=== PATIENT | male | born 1945 | race Caucasian/White ===

== ENCOUNTER 2018-01-30 09:30 | Emergency (ER) | payer MEDICARE, BC ==
[~2018-01-30] VITALS: Ht 180.3 cm; Wt 163.3 kg
[~2018-01-30 09:30] MED LIST: ALLERCLEAR10 MG PO; ASPIR-LOW81 MG PO; BACTRIM DS TAB1 EACH PO; DIOVAN320 MG PO; FLUNISOLIDE25 M1; GLYBURIDE5 MG PO; HYDRALAZINE HCL10 MG PO; LANTUS100 UNITS/ SQ; METFORMIN HCL850 MG PO; PIOGLITAZONE30 MG PO; SIMVASTATIN10 MG PO; TERAZOSIN HCL10 MG PO; TOPROL XL50 MG PO; TRIAMTERENE-HC1 EAC2 PO; ULTRAM50 MG PO
[2018-01-30 10:33] VITALS: BP 155/66
== END 2018-01-30 10:41 | disposition home or self-care (01) ==
LOC: FSED 09:30
DX: L02.31 Cutaneous abscess of buttock (principal); I10 Essential (primary) hypertension; E11.9 Type 2 diabetes mellitus without complications; Z79.82 Long term (current) use of aspirin; Z79.4 Long term (current) use of insulin
CPT/HCPCS: 19000; 87071; 87205; 99283

== ENCOUNTER 2018-02-01 08:57 | Emergency (ER) | payer MEDICARE, BC ==
[~2018-02-01] VITALS: Ht 180.3 cm; Wt 122.5 kg
--- OUTSIDE RECORDS SUMMARY | 2018-02-01 09:00 | XMS REPORT | Continuity of Care Document ---
Author Author [facility] Organization [facility] Address [address] [place] [address] Phone Unavailable Care Team Providers Care Car Dryer Name Role Phone NONSTAFF PCP Unavailable Insurance Providers Guarantor Jose Sales Address [address] [place] [address] Payer [facility] Policy Number [id number] Subscriber's Name Jose Sales Relationship 18 Self / Same As Patient Group Number [id number] Effective Date 13 Payer Medicare A & B Policy Number [id number] Subscriber's Name Jose Sales Relationship 18 Self / Same As Patient Group Name RETIRED Effective Date 11 Advance Directives Directive Response Recorded Date/Time Does the patient have an advance directive? Yes 10/17/12 8:30pm If yes, is advance directive on file with [facility]? No 10/17/12 8:30pm If not on file with [facility] will patient provide a copy? No 10/17/12 8:30pm Problems No problem information available. Medications Current Home Medications Medication Dose Units Route Directions Days Qty Instructions Start Date Aspirin (Aspir-Low) 81 Mg Tablet. 81 Mg Oral Daily Flunisolide 25 Ml [place] Glyburide 5 Mg Tablet 10 Mg Oral Twice A Day Hydralazine Hcl 10 Mg Tablet 20 Mg Oral Three Times A Day Insulin Glargine (Lantus) 100 Units/Ml Ml 20 Units Sub-Q Bedtime Loratadine (Allerclear) 10 Mg Tablet 10 Mg Oral Daily Metformin Hcl 850 Mg Tablet 850 Mg Oral Three Times A Day Metoprolol Succinate (Toprol Xl) 50 Mg Tab.er.24h 25 Mg Oral Twice A Day Pioglitazone Hcl (Pioglitazone) 30 Mg Tablet 30 Mg Oral Daily Simvastatin 10 Mg Tablet 10 Mg Oral Bedtime Sulfamethoxazole/Trimethoprim (Bactrim Ds Tablet) 1 Each Tablet 1 Tab Oral Twice A Day Terazosin Hcl 10 Mg Capsule 10 Mg Oral Daily Tramadol Hcl (Ultram) 50 Mg Tablet 50 Mg Oral Every 4 Hours as needed Triamterene/Hydrochlorothiazid (Triamterene-Hctz 37.5-25 Mg Cp) 1 Each Capsule 37.5 Mg Oral Daily Valsartan (Diovan) 320 Mg Tablet 320 Mg Oral Daily Social History Social History Problem Response Recorded Date/Time Onset Date Status Hx Psychiatric Problems No 10/17/2012 8:30pm Not Applicable Not Applicable Hx Alcohol Use No 10/17/2012 8:30pm Not Applicable Not Applicable Hx Substance Use Treatment No 10/17/2012 8:30pm Not Applicable Not Applicable Hx Physical Abuse No 10/17/2012 8:30pm Not Applicable Not Applicable Smoking Status Start Date Stop Date Former smoker Hospital Discharge Instructions No hospital discharge instruction information available. Plan of Care Discharge Date 01/30/18 10:41am Disposition HOME, SELF-CARE Condition at Discharge Stable Instructions/Education Provided Cellulitis Wound Care (General) Forms Provided Work/School Excuse Prescriptions See Medication Section Additional Instructions/Education KEEP WOUND CLEAN AND DRY DO NOT REMOVE PACKING RETURN IN 2 DAYS FOR WOUND RECHECK TAKE MEDICATIONS DIRECTED RETURN IF SYMPTOMS WORSEN Functional Status No functional status information available. Allergies, Adverse Reactions, Alerts Allergen Type Severity Reaction Status Last Updated Lisinopril Allergy Active 10/17/12 Immunizations No immunization information available. Vital Signs Acute Vital Signs Vital Response Date/Time Temperature (Fahrenheit) 97.4 degrees F (97.6 - 99.5) 01/30/2018 10:33am Pulse Pulse Rate (adult) 84 bpm (60 - 90) 01/30/2018 10:33am Respiratory Rate 18 bpm (12 - 24) 01/30/2018 10:33am Blood Pressure 155/66 mm Hg 01/30/2018 10:33am Height 5 ft 11 in 01/30/2018 9:43am Weight 360 lb 01/30/2018 9:43am Body Mass Index 50.2 kg/m^2 01/30/2018 9:43am Results No relevant diagnostic test, laboratory data and/or discharge summary information available. Procedures No procedure information available. Encounters Encounter Location Arrival/Admit Date Discharge/Depart Date Attending Provider Departed Emergency Room [facility] 01/30/18 9:30am 10:41am MICHAEL CARTER MD
[2018-02-01] MEDS: CLINDAMYCIN 600MG/D5W 50ML 50 ML IV ONE (10:05)
[2018-02-01 10:44] VITALS: BP 128/78
== END 2018-02-01 10:40 | disposition home or self-care (01) ==
LOC: FSED 08:57
DX: L02.31 Cutaneous abscess of buttock (principal); I10 Essential (primary) hypertension; E11.9 Type 2 diabetes mellitus without complications
CPT/HCPCS: 80048; 85025; 99284

== ENCOUNTER 2020-07-09 09:52 | Emergency (ER) | payer MEDICARE, BC ==
[~2020-07-09] VITALS: Ht 180.3 cm; Wt 122.5 kg
[2020-07-09] MEDS ORDERED: HYDRALAZINE HCL 20 MG/ML VIAL IV STA (10:05)
[2020-07-09 10:15] LABS: BASOPHILS % 0.6 % (0.0-1.0); EOSINOPHILS # (AUTO) 0.2 (0.0-0.4); HEMATOCRIT 44.4 % (38.2-49.6); HEMOGLOBIN 14.9 g/dL (14.0-18.0); LYMPHOCYTES # (AUTO) 2.1 (1.0-3.2); LYMPHOCYTES % 33.3 % (18.0-39.1); MEAN CORPUSCULAR HEMOGLOBIN 29.5 pg (28-32); MEAN CORPUSCULAR HGB CONC 33.6 g/dL (31-35); MEAN CORPUSCULAR VOLUME 87.9 fL (81-99); MONOCYTES # (AUTO) 0.4 (0.2-0.8); MONOCYTES % 6.4 % (4.4-11.3); NEUTROPHILS # (AUTO) 3.6 (2.1-6.9); NEUTROPHILS % 55.9 % (38.7-80.0); PLATELET COUNT 207 x10e3/uL (140-360); RED BLOOD COUNT 5.05 x10e6/uL (4.3-5.7); RED CELL DISTRIBUTION WIDTH 13.2 % (11.7-14.4)
[2020-07-09 10:28] LABS: INR 0.89; PROTHROMBIN TIME 12.5 seconds (11.9-14.5)
[2020-07-09 10:29] LABS: PARTIAL THROMBOPLASTIN TIME 26.4 seconds (23.8-35.5)
[2020-07-09 10:34] LABS: ALANINE AMINOTRANSFERASE 17 IU/L (0-55); ALBUMIN 4.1 g/dL (3.5-5.0); ALBUMIN/GLOBULIN RATIO 1.2 (0.8-2.0); ALKALINE PHOSPHATASE 56 IU/L (40-150); ANION GAP 13.4 mmol/L (8-16); BLOOD UREA NITROGEN 13 mg/dL (7-26); BUN/CREATININE RATIO 13 (6-25); CALCIUM 9.6 mg/dL (8.4-10.2); CARBON DIOXIDE 27 mmol/L (22-29); CHLORIDE 103 mmol/L (98-107); CREATINE KINASE 54 IU/L (30-200); CREATININE, SERUM 1.03 mg/dL (0.72-1.25); EST GLOMERULAR FILTRATION RATE > 60 ML/MIN (60-); GLUCOSE 235 mg/dL (74-118); POTASSIUM 3.4 mmol/L (3.5-5.1); SODIUM 140 mmol/L (136-145)
--- NOTE | 2020-07-09 10:35 | NUR ---
REQUESTED HYDRALAZINE IV FROM PHARMACY, PER PHARMACY, HYDRALAZINE IS ON BACK ORDER, DR. DUNN NOTIFIED
--- OUTSIDE RECORDS SUMMARY | 2020-07-09 10:38 | XMS REPORT | Continuity of Care Document ---
Author Author [facility] t Organization [facility] Address [address] [place] [address] Phone Unavailable Care Team Providers Care Legal Billing Clerk Name Role Phone NONSTAFF PCP Unavailable Payers Payer Name Policy Type Policy Number Effective Date Expiration Date Darwin bocanegra [facility] [id number] 2013 00:00:00 [facility] Medicare A & B [id number] 2011 00:00:[address] [facility] Problems This patient has no known problems. Allergies, Adverse Reactions, Alerts Allergy Name Allergy Type Status Severity Reaction(s) Onset Date Inacti ve Date Treating Clinician Comments Source Lisinopril Allergy to Substance Active 2018-02-01 00:00:00 [facility] Medications Ordered Medication Name Filled Medication Name Start Date Stop Da te Current Medication? Ordering Clinician Indication Dosage Frequency Signature (SIG) Comments Components Source Aspirin (Aspir-Low) 81 Mg Tablet. Aspirin (Aspir-Low) 81 Mg Tablet. Yes 81 Daily [facility] Flunisolide 25 Ml Ulm Flunisolide 25 Ml Ulm Yes [facility] Glyburide 5 Mg Tablet Glyburide 5 Mg Tablet Yes 10 Twice A Day [facility] Hydralazine Hcl 10 Mg Tablet Hydralazine Hcl 10 Mg Tablet Y es 20 Three Times A Day [facility] Insulin Glargine (Lantus) 100 Units/Ml Ml Insulin Glar gine (Lantus) 100 Units/Ml Ml Yes 20 Bedtime [facility] Loratadine (Allerclear) 10 Mg Tablet Loratadine (Allerclear) 10 Mg Tablet Yes 10 Daily [facility] Metformin Hcl 850 Mg Tablet Metformin Hcl 850 Mg Tablet Yes 850 Three Times A Day [facility] Metoprolol Succinate (Toprol Xl) 50 Mg Tab.er.24h Meto prolol Succinate (Toprol Xl) 50 Mg Tab.er.24h Yes 25 Twice A Day [facility] Pioglitazone Hcl (Pioglitazone) 30 Mg Tablet Pioglitaz one Hcl (Pioglitazone) 30 Mg Tablet Yes 30 Daily [facility] Simvastatin 10 Mg Tablet Simvastatin 10 Mg Tablet Yes 10 Bedtime [facility] Sulfamethoxazole/Trimethoprim (Bactrim Ds Tablet) 1 Ea ch Tablet Sulfamethoxazole/Trimethoprim (Bactrim Ds Tablet) 1 Each Tablet Yes 1 Twice A Day [facility] Terazosin Hcl 10 Mg Capsule Terazosin Hcl 10 Mg Capsule Yes 10 Daily [facility] Tramadol Hcl (Ultram) 50 Mg Tablet Tramadol Hcl (Ultram) 50 Mg Tablet Yes 50 Every 4 Hours as needed C [facility] Triamterene/Hydrochlorothiazid (Triamterene-Hctz 37.5- 25 Mg Cp) 1 Each Capsule Triamterene/Hydrochlorothiazid (Triamterene-Hctz 37.5-25 Mg Cp) 1 Each Capsule Yes 37.5 Daily [facility] Valsartan (Diovan) 320 Mg Tablet Valsartan (Diovan) 320 Mg Tablet Yes 320 Daily [facility] Procedures This patient has no known procedures. Encounters Start Date/Time End Date/Time [facility] ID Source 2018-02-01 08:57:00 2018-02-01 10:40:00 Departed Emergency Room [facility] [id number] [facility] 2018-01-30 09:30:00 2018-01-30 10:41:00 Departed Emergency Room [facility] [id number] [facility] Results This patient has no known results.
--- NOTE | 2020-07-09 10:39 | Diagnostic Imaging Report ---
Examination: CT BRAIN WO CONTRAST History:^N ^HTN HEADACHE ^[id number] ^1010 Comparison studies:None Technique: Axial images were obtained from the skull base to the vertex. Coronal and sagittal images reconstructed from the axial data. Dose modulation, iterative reconstruction, and/or weight based adjustment of the mA/kV was utilized to reduce the radiation dose to as low as reasonably achievable. Intravenous contrast: None Findings: Scalp: An 8.5 mm calcified lesion of the right frontal scalp. Bones: No fractures, blastic or lytic lesions. Brain sulci: Appropriate for age. Ventricles: Normal in size and configuration. No hydrocephalus. Extra-axial space: No abnormalities. Parenchyma: There are subtle patchy areas of hypoattenuation in the periventricular white matter, nonspecific, but could represent microvascular ischemic change. No masses, hemorrhage, or acute or chronic cortical based vascular insults.. Sellar/suprasellar region: No abnormalities. Craniocervical junction: Patent foramen magnum. No Chiari one malformation. Incidental findings: Atherosclerotic calcification of the cavernous and supraclinoid internal carotid arteries. Impression: No acute intracranial abnormality. Chronic microvascular ischemic change. Signed by: Dr. Elina Soto M.D. on 07/09/2020 10:36 AM
[2020-07-09] MEDS ORDERED: NIFEDIPINE 10 MG CAP PO STA (10:41)
--- NOTE | 2020-07-09 10:41 | Diagnostic Imaging Report ---
TECHNIQUE: Frontal view of the chest. INDICATION: ^HTN URGENCY COMPARISON: None DISCUSSION: Limited evaluation due to portable technique. Lines and hardware: None Heart and mediastinum: Cardiomediastinal silhouette is borderline enlarged, accentuated by technique. Lungs and pleura: Low lung volumes. No focal airspace consolidation. No pleural effusion. No pneumothorax. Soft tissues and bones: No acute abnormality. IMPRESSION: Low lung volumes. Negative for acute intrathoracic process. Signed by: Adama Hines MD on 07/09/2020 10:38 AM
--- NOTE | 2020-07-09 11:36 | Emergency Department Note ---
History of Present Illnes History of Present Illness Chief Complaint: Hypertension History of Present Illness This is a 74 year old male PATIENT IN FROM HOME WITH COMPLAINTS OF HIGH BLOOD PRESSURE FOR OVER A WEEK; STATES HE HAS BEEN TAKING HIS BLOOD PRESSURE MEDICATION BUT IT HAS NOT BEEN WORKING. PATIENT ALERT AND ORIENTED, RESP EVEN AND NONLABORED, APPEARS IN NO DISTRESS, DENIES PAIN, AMBULATORY WITHOUT ASSISTANCE. Historian: Patient Arrival Mode: Car Family Services Specialist Required: No Onset (how long ago): week(s) (1) Location: NO PAIN Radiation: Reports non-radiation Severity: mild Onset quality: gradual Timing of current episode: intermittent Chronicity: chronic Context: Denies recent illness Relieving factors: none Exacerbating factors: none Associated symptoms: Reports denies other symptoms, Reports headaches (OCCASIONAL HEADACHES, HAS MILD GEORGE YESTERDAY, NO PAIN CURRENTLY) Treatments prior to arrival: none Past Medical/Family History Physician Review I have reviewed the patient's past medical and family history. Any updates have been documented here. Past Medical History Recent Fever: No Clinical Suspicion of Infectio: No New/Unexplained Change in Ment: No Past Medical History: Hypertension, Diabetes, Depression Other Medical History: BPH Past Surgical History: None Other Surgery: SHOULDER SURGERY Social History Smoking Cessation: Never Smoker Counseling Performed: No Alcohol Use: None Any Illegal Drug Use: No TB Exposure/Symptoms: No Physically hurt or threatened: No Family History Family history of heart diseas: No Other Last Tetanus: UNK Any Pre-Existing Lines (PICC,: No Review of Systems Review of Systems Constitutional: Reports no symptoms EENTM: Reports no symptoms Cardiovascular: Reports no symptoms Respiratory: Reports no symptoms Gastrointestinal: Reports no symptoms Genitourinary: Reports no symptoms Musculoskeletal: Reports no symptoms Integumentary: Reports no symptoms Neurological: Reports no symptoms Psychological: Reports no symptoms Endocrine: Reports no symptoms Hematological/Lymphatic: Reports no symptoms Physical Exam Related Data Allergies: Coded Allergies: Uicalos-Zrd-Vcj Reductase Inhibitor (Verified Allergy, Severe, SWELLING, DIFFICULTY BREATHING, 07/09/20) lisinopril (Verified Allergy, Unknown, 07/09/20) Triage Vital Signs Vital Signs Date Time Temp Pulse Resp B/P (MAP) Pulse Ox O2 Delivery O2 Flow Rate FiO2 07/09/20 09:58 97.0 83 20 210/96 99 Room Air Vital signs reviewed: Yes Physical Exam CONSTITUTIONAL Constitutional: Present well-developed, Present well-nourished, Present obese HENT HENT: Present normocephalic, Present atraumatic, Present oropharynx clear/moist, Present nose normal HENT L/R: Present left ext ear normal, Present right ext ear normal EYES Eyes: Reports PERRL, Reports conjunctivae normal NECK Neck: Present ROM normal PULMONARY Pulmonary: Present effort normal, Present breath sounds normal CARDIOVASCULAR Cardiovascular: Present regular rhythm, Present heart sounds normal, Present capillary refill normal, Present normal rate GASTROINTESTINAL Abdominal: Present soft, Present nontender, Present bowel sounds normal GENITOURINARY Genitourinary: Present exam deferred SKIN Skin: Present warm, Present dry MUSCULOSKELETAL Musculoskeletal: Present ROM normal NEUROLOGICAL Neurological: Present alert, Present oriented x 3, Present no gross motor or sensory deficits PSYCHOLOGICAL Psychological: Present mood/affect normal, Present judgement normal Results Laboratory Result Diagram: 07/09/20 1004 07/09/20 1004 Laboratory Laboratory Tests Test 07/09/20 10:04 White Blood Count 6.43 x10e3/uL (4.8-10.8) Red Blood Count 5.05 x10e6/uL (4.3-5.7) Hemoglobin 14.9 g/dL (14.0-18.0) Hematocrit 44.4 % (38.2-49.6) Mean Corpuscular Volume 87.9 fL (81-99) Mean Corpuscular Hemoglobin 29.5 pg (28-32) Mean Corpuscular Hemoglobin Concent 33.6 g/dL (31-35) Red Cell Distribution Width 13.2 % (11.7-14.4) Platelet Count 207 x10e3/uL (140-360) Neutrophils (%) (Auto) 55.9 % (38.7-80.0) Lymphocytes (%) (Auto) 33.3 % (18.0-39.1) Monocytes (%) (Auto) 6.4 % (4.4-11.3) Eosinophils (%) (Auto) 3.0 % (0.0-6.0) Basophils (%) (Auto) 0.6 % (0.0-1.0) Neutrophils # (Auto) 3.6 (2.1-6.9) Lymphocytes # (Auto) 2.1 (1.0-3.2) Monocytes # (Auto) 0.4 (0.2-0.8) Eosinophils # (Auto) 0.2 (0.0-0.4) Basophils # (Auto) 0.0 (0.0-0.1) Absolute Immature Granulocyte (auto 0.05 x10e3/uL (0-0.1) Prothrombin Time 12.5 seconds (11.9-14.5) Prothromb Time International Ratio 0.89 Activated Partial Thromboplast Time 26.4 seconds (23.8-35.5) Sodium Level 140 mmol/L (136-145) Potassium Level 3.4 mmol/L (3.5-5.1) Chloride Level 103 mmol/L (98-107) Carbon Dioxide Level 27 mmol/L (22-29) Anion Gap 13.4 mmol/L (8-16) Blood Urea Nitrogen 13 mg/dL (7-26) Creatinine 1.03 mg/dL (0.72-1.25) Estimat Glomerular Filtration Rate > 60 ML/MIN (60-) BUN/Creatinine Ratio 13 (6-25) Glucose Level 235 mg/dL (74-118) Calcium Level 9.6 mg/dL (8.4-10.2) Total Bilirubin 0.5 mg/dL (0.2-1.2) Aspartate Amino Transf (AST/SGOT) 15 IU/L (5-34) Alanine Aminotransferase (ALT/SGPT) 17 IU/L (0-55) Alkaline Phosphatase 56 IU/L (40-150) Creatine Kinase 54 IU/L (30-200) Creatine Kinase MB 1.10 ng/mL (0-5.0) Troponin I 0.006 ng/mL (0-0.300) Total Protein 7.5 g/dL (6.5-8.1) Albumin 4.1 g/dL (3.5-5.0) Globulin 3.4 g/dL (2.3-3.5) Albumin/Globulin Ratio 1.2 (0.8-2.0) Lab results reviewed: Yes Imaging Imaging results reviewed: Yes Procedures 12 Lead ECG Interpretation ECG Interpretation : ECG: ECG 1 Family Services Specialist: Interpreted by ED physician Date: Jul 09, 2020 Time: 10:06 Rhythm: sinus bradycardia (WITH 1ST DEG AVB) Rate: bradycardia BPM: 57 QRS axis: normal Conduction: intraventricular conduction delay ST segments normal: Yes T wave inversion: III T waves flattening: aVF, V3, V4, V5, V6 Q waves: III Clinical Impression: abnormal ECG Assessment & Plan Medical Decision Making MDM HTN, ASYMPTOMATIC EXCEPT REPORTS GEORGE YESTERDAY - CHECK FOR END-ORGAN DAMAGE - CBC, CHEM, ECG, CARDIACS, CT BRAIN Reassessment Reassessment DC HOME, F/U PCP, CONTINUE MEDS, DILTIAZEM ER 90 QDAY Assessment & Plan Final Impression: (1) Hypertension Depart Disposition: HOME, SELF-CARE Last Vital Signs Date Time Temp Pulse Resp B/P (MAP) Pulse Ox O2 Delivery O2 Flow Rate FiO2 07/09/20 11:14 62 190/94 07/09/20 09:58 97.0 20 99 Room Air Home Meds Reported Medications Sulfamethoxazole/Trimethoprim (BACTRIM DS TABLET) 1 Each Tablet, 1 TAB PO BID 10/18/12 Tramadol Hcl (ULTRAM) 50 Mg Tablet, 50 MG PO Q4 PRN 10/18/12 Insulin Glargine (LANTUS) 100 Units/Ml Ml, 20 UNITS SQ HS 10/18/12 Aspirin (ASPIR-LOW) 81 Mg Tablet.dr, 81 MG PO DAILY 10/17/12 Valsartan (DIOVAN) 320 Mg Tablet, 320 MG PO DAILY 10/17/12 Terazosin Hcl (TERAZOSIN HCL) 10 Mg Capsule, 10 MG PO DAILY 10/17/12 Simvastatin (SIMVASTATIN) 10 Mg Tablet, 10 MG PO HS 10/17/12 Metoprolol Succinate (TOPROL XL) 50 Mg Tab.er.24h, 25 MG PO BID 10/17/12 Metformin Hcl (METFORMIN HCL) 850 Mg Tablet, 850 MG PO TID 10/17/12 Pioglitazone Hcl (PIOGLITAZONE) 30 Mg Tablet, 30 MG PO DAILY 10/17/12 Loratadine (ALLERCLEAR) 10 Mg Tablet, 10 MG PO DAILY 10/17/12 Hydralazine Hcl (HYDRALAZINE HCL) 10 Mg Tablet, 20 MG PO TID 10/17/12 Triamterene/Hydrochlorothiazid (TRIAMTERENE-HCTZ 37.5-25 MG CP) 1 Each Capsule, 37.5 MG PO DAILY 10/17/12 Glyburide (GLYBURIDE) 5 Mg Tablet, 10 MG PO BID 10/17/12 Flunisolide (FLUNISOLIDE) 25 Ml [place] 10/17/12 Medications in the ED Hydralazine HCl 10 mg NOW STAT IV ; Start 07/09/20 at 10:05; Stop 07/09/20 at 10:18; Status DC Nifedipine 10 mg ONCE STAT PO Last administered on 07/09/20at 11:14; Admin Dose 10 MG; Start 07/09/20 at 10:41; Stop 07/09/20 at 10:49; Status DC RAMIN DUNN MD Jul 09, 2020 11:36
== END 2020-07-09 11:57 | disposition home or self-care (01) ==
LOC: ER 10:32
DX: I10 Essential (primary) hypertension (principal); E11.9 Type 2 diabetes mellitus without complications; F32.9 Major depressive disorder, single episode, unspecified; R94.31 Abnormal electrocardiogram [ECG] [EKG]
CPT/HCPCS: 36415; 70450; 71045; 80053; 82550; 82553; 84484; 85025; 85610; 85730; 93005; 99284